=== PATIENT | male | born 1945 | race Caucasian/White ===

== ENCOUNTER 2018-12-16 11:14 | Emergency (ER) | payer SELFPAY ==
[~2018-12-16] VITALS: Ht 177.8 cm; Wt 77.3 kg
[2018-12-16 11:19] VITALS: BP 181/88
== END 2018-12-16 15:52 | disposition left against medical advice (07) ==
LOC: ER 11:14
DX: M79.662 Pain in left lower leg (principal); M79.89 Other specified soft tissue disorders; Z53.21 Procedure and treatment not carried out due to patient leaving prior to being seen by health care provider